=== PATIENT | female | born 1990 | race Caucasian/White ===

== ENCOUNTER 2019-11-06 00:29 | Outpatient (CLI) | payer OTHER, SELFPAY ==
[2019-11-06 20:58] LABS: SARS-CoV-2 RNA PCR Negative
== END 2019-11-06 00:30 | disposition home or self-care (01) ==
LOC: ANHCOVIDDT 00:29
PROVIDERS: PCP Internal Medicine; Visit Provider Internal Medicine Gastroenterology
DX: Z01.818 Encounter for other preprocedural examination (principal); Z11.59 Encounter for screening for other viral diseases
CPT/HCPCS: 87635; C9803; U0003

== ENCOUNTER 2019-11-09 01:43 | Day surgery (SDC) | payer OTHER, SELFPAY ==
[2019-11-05 15:12] VITALS: BMI 23.4
--- NOTE | 2019-11-09 07:30 | P.HP_ITS ---
History of Present Illness History of Present Illness Consent: Risks, benefits, and alternatives have been discussed and questions answered. Patient agrees to proceed with procedure. Chief complaint: Diarrhea Narrative: Yasmin Vaca is a 29 year old W female with chronic diarrhea of least 10 year duration. Slight increased symptoms with several loose stools in the morning and pain when she eats maybe some later in the day. Usually worsened by greasy foods. Patient denies any blood in her stools. No significant weight loss. No family history of colon polyps colon cancer or inflammatory bowel disease. Patient states he had blood work through Dr. Simmons office and she has not received the results of yet. She is not sure if they did celiac sprue antibodies. COUNTS INCLUDE 234 BEDS AT THE [facility] Surgical History Surgical History (Updated 11/09/19 @ 07:32 by Steven Dougherty MD) H/O bilateral salpingectomy H/O wisdom tooth extraction Status post right breast lumpectomy Meds Home Medications and Allergies Home Medications Medication Instructions Recorded Confirmed Type No Home Medications 11/05/19 11/05/19 History Allergies Allergy/AdvReac Type Severity Reaction Status Date / Time No Known Allergies Allergy Verified 11/05/19 15:07 Exam Const: Orientation/consciousness: patient oriented x3 Resp: Auscultation: clear to auscultation bilaterally Cardio: Rate: regular rate Rhythm: regular rhythm Heart sounds: no murmurs GI: GI Palp: Yes Soft to palpation, No Tenderness to palpation present (GI), Yes No hepatosplenomegaly present and No Palpable mass present Auscultation: normal bowel sounds Neuro: General: patient oriented x3 and no focal motor deficits Extrem: General: no pedal edema Assessment and Plan Additional Plan colonoscopy for evaluation of chronic diarrhea
[2019-11-09] MEDS: LACTATED RINGERS 1,000 ML 150 ML IV CONT (07:47)
[2019-11-09 07:49] VITALS: BP 134/92; PULSE 78; RESP 18; TEMP 36.4; O2SAT 100; BMI 22.6
--- NOTE | 2019-11-09 08:03 | WPDANESEPPF ---
Anes - Initial Pre Proc Eval Procedure: Operation Date: 11/09/19 08:30 Proposed Procedures p Colonoscopy - Steven Dougherty MD Date/Time: 11/09/19 08:03 Surgeon: Steven Dougherty MD Pre Op Diagnosis: Diarrhea Patient Data Age: 29 Gender: F Height: 1.6 m Weight: 57.9 kg Last Vital Signs Temp 36.4 C 11/09/19 07:49 Pulse 78 11/09/19 07:49 Resp 18 11/09/19 07:49 BP 134/92 H 11/09/19 07:49 Pulse Ox 100 11/09/19 07:49 Allergies Allergy/AdvReac Type Severity Reaction Status Date / Time No Known Allergies Allergy Verified 11/05/19 15:07 Home Medications Medication Instructions Recorded Confirmed Type No Home Medications 11/05/19 11/05/19 History Patient hx anesthesia problems: none Family hx anesthesia problems: none PMFSH Surgical History Surgical History (Updated 11/09/19 @ 07:32 by Steven Dougherty MD) H/O bilateral salpingectomy H/O wisdom tooth extraction Status post right breast lumpectomy Anes - Eval Final PreProcedure Day of Procedure 11/09/19 08:03 Patient weight: normal Heart: regular rate and rhythm Lungs: clear to auscultation and normal air movement Airway: Mallampati scale class II Neurological: alert and oriented Last oral intake: >/= 8 hours ASA classification: I Emergent: no Anesthetic plan: proceed Anesthesia type and monitoring: general GIVS Informed Consent: The patient's anesthetic plan and its attendant risks and benefits were discussed with the patient/family/POA. Questions were solicited and answers provided to the satisfaction of the patient/family/POA.
[2019-11-09 09:25] VITALS: BP 105/61; PULSE 74; RESP 18; O2SAT 99
[2019-11-09 09:35] VITALS: BP 103/63; PULSE 59; RESP 18; O2SAT 100
[2019-11-09 09:42] VITALS: BP 115/78; PULSE 84; RESP 18; O2SAT 100
== END 2019-11-09 10:00 | disposition home or self-care (01) ==
PROVIDERS: PCP Internal Medicine; Visit Provider Internal Medicine Gastroenterology
PROC: 0DJD8ZZ Inspection of Lower Intestinal Tract, Via Natural or Artificial Opening Endoscopic (ICD-10-PCS; CPT 45378; principal; 2019-11-09 08:30)
DX: K52.9 Noninfective gastroenteritis and colitis, unspecified (principal); K64.8 Other hemorrhoids; K64.4 Residual hemorrhoidal skin tags
CPT/HCPCS: 45380; 88305; J2001; J2704; J7120